=== PATIENT | male | born 1940 | race Caucasian/White ===

== ENCOUNTER 2020-01-02 00:12 | Day surgery (SDC) | payer MEDICARE, SELFPAY ==
[2019-12-27 15:02] VITALS: BMI 30.7
[2020-01-02 09:56] VITALS: BP 150/81; PULSE 67; RESP 18; TEMP 36.3; O2SAT 99
[2020-01-02] MEDS: LACTATED RINGERS 1,000 ML 150 ML IV CONT (09:59)
--- NOTE | 2020-01-02 10:09 | WPDANESEPPF ---
Anes - Initial Pre Proc Eval Procedure: Operation Date: 01/02/20 10:30 Proposed Procedures p Screening Colonoscopy - Homero Burrows DO Date/Time: 01/02/20 10:09 Surgeon: Homero Burrows DO Pre Op Diagnosis: hx of colon polyp Patient Data Age: 79 Gender: M Height: 1.8 m Weight: 99.3 kg Last Vital Signs Temp 36.3 C L 01/02/20 09:56 Pulse 67 01/02/20 09:56 Resp 18 01/02/20 09:56 BP 150/81 H 01/02/20 09:56 Pulse Ox 99 01/02/20 09:56 Allergies Allergy/AdvReac Type Severity Reaction Status Date / Time No Known Allergies Allergy Verified 01/02/20 09:53 Home Medications Medication Instructions Recorded Confirmed Type ascorbic acid (vitamin C) 1,000 mg 1 gm PO DAILY 12/25/19 01/02/20 History tablet aspirin 81 mg tablet,delayed 81 mg PO DAILY 12/25/19 01/02/20 History release atorvastatin 40 mg tablet 40 mg PO DAILY 12/25/19 01/02/20 History calcium polycarbophil 625 mg tablet 2,500 mg PO DAILY tablet 12/25/19 01/02/20 History coQ10 (ubiquinol) 100 mg capsule 100 mg PO BID 12/25/19 01/02/20 History digestive enzymes 1 cap PO DAILY 12/25/19 01/02/20 History garlic 500 mg capsule 500 mg PO DAILY 12/25/19 01/02/20 History halobetasol propionate 0.05 % 1 applic TOPICAL BID 12/25/19 01/02/20 History topical cream lactobacillus combination no.8 3 3,000 mmu cells PO DAILY 12/25/19 01/02/20 History billion cell capsule midazolam 3 mg-ketamine 25 tablet SUBLINGUAL 12/25/19 History mg-ondansetron 2 mg sublingual ashia prasterone (dhea) 25 mg capsule 25 mg PO DAILY 12/25/19 01/02/20 History triamcinolone acetonide 0.025 % 1 applic TOPICAL BID 12/25/19 01/02/20 History topical cream latanoprost [Xalatan] 0.005 % RIGHTEYE BID 12/27/19 01/02/20 History metoprolol tartrate [Lopressor] 50 mg PO BID 12/27/19 01/02/20 History Patient hx anesthesia problems: none Family hx anesthesia problems: none [facility] Past Medical History Medical History (Updated 01/02/20 @ 10:09 by Oren Mcneal DO) CAD (coronary artery disease) Hypertension Pure hypercholesterolemia Surgical History Surgical History (Updated 01/01/20 @ 14:22 by Oren Mcneal DO) History of cholecystectomy S/P CABG x 4 Social History Social History Smoking status: Never smoker Second hand tobacco smoke exposure: No Alcohol intake: never Substance use: never Gender identity (if verbalized by the patient): Male Anes - Eval Final PreProcedure Day of Procedure 01/02/20 10:09 Patient weight: obese Heart: regular rate and rhythm Lungs: clear to auscultation and normal air movement Airway: Mallampati scale class II Neurological: alert and oriented Last oral intake: >/= 8 hours ASA classification: III Emergent: no Anesthetic plan: proceed Anesthesia type and monitoring: general GIVS and standard monitoring Informed Consent: The patient's anesthetic plan and its attendant risks and benefits were discussed with the patient/family/POA. Questions were solicited and answers provided to the satisfaction of the patient/family/POA.
--- NOTE | 2020-01-02 10:27 | PM.IMHP ---
H&P: HPI History of Present Illness Chief complaint: hx of colon polyp Narrative: Reason for visit is colonoscopy. This very pleasant gentleman seen at the request of the primary physician with the patient's permission. Impression: Screening and surveillance colonoscopy. Patient's history adenomatous colon polyps. Chronic idiopathic constipation. GERD controlled with dietary manipulation. Coronary disease. Status post angioplasty with stent placement and subsequent coronary bypass grafting x4 vessels. Hypertension. Hyperlipidemia. Glaucoma. Recommendation: Colonoscopy. History: This very pleasant gentleman is being evaluated for colon cancer and polyp screening and surveillance. He has a history adenomatous colon polyps. He has a history of chronic constipation and previous colonoscopy also showed melanosis coli. The patient does complain of occasional heartburn. He watches his diet and this seems to control his heartburn. the patient reports occasional hard stool otherwise the GI review systems unremarkable. Physical examination revealed a very pleasant gentleman in no acute distress. General: very pleasant patient in no acute distress. HEENT: Head was normocephalic sclerae is clear mouth without masses neck was supple. Heart: Rate rhythm regular without S3 or S4. Lungs: CTA. Abdomen: Soft with no guarding or rigidity. Bowel sounds were active. Neurologic: Cranial nerves 2 through 12 intact. No focal defects. No clonus. Musculoskeletal system: Revealed no joint tenderness or swelling no muscle atrophy. Extremities: Reveal no significant edema. Skin: Warm and dry with normal turgor. Mental status: intact. Patient is alert and oriented. Want to thank inflammatory to spit the care of this patient. Review of Systems Review of Systems: All systems reviewed & are unremarkable except as noted in HPI and below PMFSH Past Medical History Medical History (Updated 01/02/20 @ 10:32 by Homero Burrows DO) Adenomatous colon polyp CAD (coronary artery disease) Glaucoma Hernia Hypertension Pure hypercholesterolemia Surgical History Surgical History (Updated 01/02/20 @ 10:32 by Homero Burrows DO) H/O cardiac catheterization H/O knee surgery History of cholecystectomy History of coronary angioplasty with insertion of stent S/P CABG x 4 Social History Social History Smoking status: Never smoker Second hand tobacco smoke exposure: No Alcohol intake: never Substance use: never Gender identity (if verbalized by the patient): Male Meds Home Medications and Allergies Home Medications Medication Instructions Recorded Confirmed Type ascorbic acid (vitamin C) 1,000 mg 1 gm PO DAILY 12/25/19 01/02/20 History tablet aspirin 81 mg tablet,delayed 81 mg PO DAILY 12/25/19 01/02/20 History release atorvastatin 40 mg tablet 40 mg PO DAILY 12/25/19 01/02/20 History calcium polycarbophil 625 mg tablet 2,500 mg PO DAILY tablet 12/25/19 01/02/20 History coQ10 (ubiquinol) 100 mg capsule 100 mg PO BID 12/25/19 01/02/20 History digestive enzymes 1 cap PO DAILY 12/25/19 01/02/20 History garlic 500 mg capsule 500 mg PO DAILY 12/25/19 01/02/20 History halobetasol propionate 0.05 % 1 applic TOPICAL BID 12/25/19 01/02/20 History topical cream lactobacillus combination no.8 3 3,000 mmu cells PO DAILY 12/25/19 01/02/20 History billion cell capsule midazolam 3 mg-ketamine 25 tablet SUBLINGUAL 12/25/19 History mg-ondansetron 2 mg sublingual ashia prasterone (dhea) 25 mg capsule 25 mg PO DAILY 12/25/19 01/02/20 History triamcinolone acetonide 0.025 % 1 applic TOPICAL BID 12/25/19 01/02/20 History topical cream latanoprost [Xalatan] 0.005 % RIGHTEYE BID 12/27/19 01/02/20 History metoprolol tartrate [Lopressor] 50 mg PO BID 12/27/19 01/02/20 History Allergies Allergy/AdvReac Type Severity Reaction St
[2020-01-02 11:26] VITALS: BP 81/50; PULSE 64; RESP 14; O2SAT 97
[2020-01-02 11:36] VITALS: BP 109/67; PULSE 66; RESP 17; O2SAT 94
[2020-01-02 11:46] VITALS: BP 128/70; PULSE 65; RESP 18; O2SAT 95
== END 2020-01-02 11:58 | disposition home or self-care (01) ==
PROVIDERS: PCP Internal Medicine; Visit Provider Internal Medicine Gastroenterology
PROC: 0DJD8ZZ Inspection of Lower Intestinal Tract, Via Natural or Artificial Opening Endoscopic (ICD-10-PCS; CPT 45378; principal; 2020-01-02 10:30)
DX: Z12.11 Encounter for screening for malignant neoplasm of colon (principal); K52.9 Noninfective gastroenteritis and colitis, unspecified; K63.5 Polyp of colon; D12.8 Benign neoplasm of rectum; K64.8 Other hemorrhoids; K63.89 Other specified diseases of intestine; K57.30 Diverticulosis of large intestine without perforation or abscess without bleeding; I10 Essential (primary) hypertension; I25.10 Atherosclerotic heart disease of native coronary artery without angina pectoris; E78.00 Pure hypercholesterolemia, unspecified; Z95.1 Presence of aortocoronary bypass graft; Z79.82 Long term (current) use of aspirin; E66.9 Obesity, unspecified; Z68.30 Body mass index [BMI] 30.0-30.9, adult
CPT/HCPCS: 45380; 88305; J2704; J7120

== ENCOUNTER 2025-09-25 00:02 | Day surgery (SDC) | payer MEDICARE, SELFPAY ==
--- OUTSIDE RECORDS SUMMARY | 2017-07-03 07:50 | XMS_ITS | Continuity of Care Document ---
Author Organization [facility] Address [address] [place] [address] [address] [place] [address] Phone Care Team Providers Care Lab Support Technician Name Role Phone Annika PELAYO, William Unavailable Unavaila ble Procedures Procedure Date CATARACT SURG W/IOL, 1 STAGE OFFICE/OUTPATIENT VISIT, [facility] OPHTHALMIC BIOMETRY LT GDX Optic Nerve Advance Directives Directive Yes / No Effective Date File Name No Information Encounters Encounter Description Practice Location Reason(s) For Visit Diagnoses Date Provider Providers Copied on Encounter [facility], [id number] [place] [address] [address], [place], [place], [id number], [place] tel:[phone] No Information 7 Annika Thomas. [address], [address], [place], [place], [address], [place]. tel:[phone] Referring Provider: William ford, [address], [place], [address] . tel:[phone] OFFICE/OUTPA TIENT VISIT, [facility], [id number] [place] [address] [address], [place], [place], [id number], [place] tel:[phone] [facility] No Information 7 Annika Thomas. [address], [address], [place], [place], [id number], [place]. tel:[phone] Referring Provider: William ford, [address], [place], [address] . tel:[phone] Family History Family Member Type Diagnosis Age At Onset No Information Payers Payer name Insurance type Covered green party ID Yvette powell(s) IBEW LOCAL 1 SECONDARY CLAIMS CI [id number] Social History Type Description Quantity Date Captured Comments Sex Female Smoking Status No Information Chief Complaint And Reason For Visit No Information Reason For Referral Reason For Referral No Information History Of Present Illness Encounter Date Complaint History Of Prese nt Illness No Information Functional Status Date Functional Assessmen t No Information Instructions Date Instruction Additional Infor mation No Information Assessments Type Assessment Date No Information Patient Care Teams Name Effective Dates (start - stop) Status Members No Information
[2025-09-05 08:26] VITALS: BMI 30.2
--- OUTSIDE RECORDS SUMMARY | 2025-09-25 00:07 | XMS_ITS | Encounter Summary ---
Author Organization [facility] Address [address] [place] [address] Care Team Providers Care County Engineer Name Role Phone Sundeep Rivera DO Primary Care Provider [phone] Encounter Details Date Type Department Care Team (Late st Contact Info) Description 11/07/2018 Lab Requisition [facility] Care DermPath Lab [address] [place] [address] Matthias Ruiz MD [address] [place] [address] Social History Tobacco Use Types Packs/Day Years Used Date Smoking Tobacco: Never Assessed Sex and Gender Information Value Date Recorded Sex Assigned at Not on file Legal Sex Male 5:21 AM GLASS WASHER Gender Identity Not on file Sexual Orientation Not on file documented as of this encounter Plan of Treatment Not on file documented as of this encounter Procedures Procedure Name Priority Date/Time Associated Diagnosis Comments DERMATOPATHOLOGY Routine 11/06/2018 12:0 0 AM GLASS WASHER documented in this encounter Results * DERMATOPATHOLOGY (11/06/2018 12:00 AM GLASS WASHER) Case Report Dermatopathology Report Case: [id number] Authorizing Provider: Matthias Ruiz MD Collected: 11/06/2018 12:00 AM Pathologist: Uriel Vera MD Received: 11/07/2018 11:34 AM Specimens: A) - Skin, right frontal scalp B) - Skin, anterior to right sideburn 9 2:48 PM [facility] DERMATOPATHOLOGY LABORATORY Final Diagnosis Specimen A. SKIN, right frontal scalp: COMPOUND MELANOCYTIC PROLIFERATION; NOT PRESENT AT SAMPLED MARGIN (D48.5) (see microscopic description and comment) Specimen B. SKIN, anterior to right sideburn: BASAL CELL CARCINOMA, NODULAR TYPE (C44.319) 2:48 PM [facility] DERMATOPATHOLOGY LABORATORY at [address] Clinical History A: R/O ISK vs nevus. B: R/O SCC, BCC, HAK. 2:48 PM [facility] DERMATOPATHOLOGY LABORATORY Gross Description Specimen A: Received is one formalin filled container labeled with the patient's name and designated right frontal scalp. The specimen consists of a shave biopsy measuring [id number]. Jar 0. Specimen B: Received is one formalin filled container labeled with the patient's name and designated anterior to right sideburn. The specimen consists of a shave biopsy measuring [id number]. Jar 0. 2:48 PM [facility] DERMATOPATHOLOGY LABORATORY Microscopic Description Specimen A. SKIN, right frontal scalp: Sections show a compound melanocytic proliferation. There is a lentiginous proliferation of melanocytes between irregular nests. Scattered melanocytes show evidence of upward migration within the epidermis. The dermis shows focal small nests of cytologically similar melanocytes. The melanocytes are highlighted by a MART-1/Melan-A immunohistochemical stain. This lesion is not present at the sampled margin of the specimen. COMMENT: Overall a compound melanocytic nevus, lentiginous type that is irritated is favored. However, these lesions are uncommon on the head and neck and the lentiginous component is worrisome. As this lesion appears completely excised in the sampled sections, clinicopathologic correlation is recommended as to complete removal. Specimen B. SKIN, anterior to right sideburn: Within the dermis there are aggregates of basaloid cells with a high nuclear to cytoplasmic ratio and peripheral palisading. 2:48 PM [facility] DERMATOPATHOLOGY LABORATORY Disclaimer An external and internal positive and negative controls are appropriate for the histochemical, immunohistochemical and immunofluorescence stain(s) in this case (if any), except where stated explicitly. The performance characteristics of the stain(s) cited in this report were developed and its performance characteristic determined by the Dermatopathology Laboratory at [facility], directed by Dr. Madiha Vera. These tests need not be, and therefore are not, approved by the [place] Food and Drug Administration. The tests are used for clinical purposes. Billing Codes Specimen Charges Stain Charges 90584 69503 1 1 79010 1 9 2:48 PM [facility] DERMATOPATHOLOGY LABORATORY Embedded Images 9 2:48 PM [facility] DERMATOPATHOLOGY LABORATORY Pathology/Cytology TISSUE SPECIMEN FROM SKIN / Unknown 11/06/2018 11/07/2018 11:34 AM GLASS WASHER Miscellaneous samples (specimen) TISSUE SPECIMEN FROM SKIN / Unknown 11/06/2018 11/07/2018 11:34 AM GLASS WASHER Matthias Ruiz MD LAB - PATHOLOGY/CYTOLOGY ORD ERABLES Final Result DERMATOPATHOLOGY LABORATORY [facility] - Department of Dermatology [address] [place] [address], 5th Floor Lab [address] [phone] documented in this encounter Visit Diagnoses Not on filedocumented in this encounter Care Teams County Engineer Relationship Specialty Start Date End Date Sundeep Rivera DO [address] [place] [address] PCP - General 04/12/18 documented as of this encounter
--- OUTSIDE RECORDS SUMMARY | 2025-09-25 00:07 | XMS_ITS | Encounter Summary ---
Author Organization [facility] Address [address] [place] [address] Care Team Providers Care Quarrying Manager Name Role Phone Sundeep Rivera DO Primary Care Provider [phone] Encounter Details Date Type Department Care Team (Late st Contact Info) Description 11/26/2018 Lab Requisition [facility] Care DermPath Lab [address] [place] [address] Matthias Ruiz MD [address] [place] [address] Social History Tobacco Use Types Packs/Day Years Used Date Smoking Tobacco: Never Assessed Sex and Gender Information Value Date Recorded Sex Assigned at Not on file Legal Sex Male 5:21 AM COSMETIC MAKER Gender Identity Not on file Sexual Orientation Not on file documented as of this encounter Plan of Treatment Not on file documented as of this encounter Procedures Procedure Name Priority Date/Time Associated Diagnosis Comments DERMATOPATHOLOGY Routine 11/23/2018 12:0 0 AM COSMETIC MAKER documented in this encounter Results * DERMATOPATHOLOGY (11/23/2018 12:00 AM COSMETIC MAKER) Case Report Dermatopathology Report Case: [id number] Authorizing Provider: Matthias Ruiz MD Collected: 11/23/2018 12:00 AM Pathologist: Berta Olson MD Received: 11/26/2018 11:08 AM Specimen: Skin, left upper back 9 9:28 AM COSMETIC MAKER DERMATOPATHOLOGY LABORATORY Final Diagnosis Specimen A. 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 9:28 AM [facility]MATOP[facility] Gross Description Specimen A: Received is one formalin filled container labeled with the patient's name and designated left upper back. The specimen consists of a shave biopsy measuring [id number]. Jar 0. 9:28 AM [facility]ERMATOP[facility] Microscopic Description Specimen A. SKIN, left upper back: There is focal parakeratosis and spongiosis. The dermis shows a superficial to mid dermal, perivascular and interstitial infiltrate of lymphocytes and eosinophils. Many of the eosinophils are present in the papillary dermis and occasional eosinophils are noted within the epidermis. Grocott's methenamine silver (GMS) stain fails to highlight fungal elements in the available sections. COMMENT: The histological differential diagnosis includes contact dermatitis, the urticarial phase of bullous pemphigoid, and a hypersensitivity reaction. If there is clinical concern for a diagnosis of bullous pemphigoid consideration should be given to submitting tissue for direct immunofluorescence. 9:28 AM [facility] Disclaimer An external and internal positive and negative controls are appropriate for the histochemical, immunohistochemical and immunofluorescence stain(s) in this case (if any), except where stated explicitly. The performance characteristics of the stain(s) cited in this report were developed and its performance characteristic determined by the Dermatopathology Laboratory at [facility], directed by Dr. Madiha Vera. These tests need not be, and therefore are not, approved by the [place] Food and Drug Administration. The tests are used for clinical purposes. Billing Codes Specimen Charges Stain Charges 79480 1 19198 1 9:28 AM [facility] Embedded Images 9:28 AM [facility] Pathology/Cytolog y TISSUE SPECIMEN FROM SKIN / Unknown 11/23/2018 11/26/2018 11:08 AM [facility] Matthias Ruiz MD LAB - PATHOLOGY/CYTOLOGY ORD ERABLES Final Result DERMATOPATHOLOGY LABORATORY [facility] - Department of Dermatology [facility] [facility], [address]th [place] [address], [facility] [phone] documented in this encounter Visit Diagnoses Not on filedocumented in this encounter Care Teams Quarrying Manager Relationship Specialty Start Date End Date Sundeep Rivera DO [address] [place] [address] PCP - General 04/12/18 documented as of this encounter
--- OUTSIDE RECORDS SUMMARY | 2025-09-25 00:07 | XMS_ITS | Clinical Summary ---
Author Organization [facility] Address [address], [facility] [address] [place] [address] Phone Care Team Providers Care Operations Specialists Name Role Phone Sundeep Rivera DO Primary Care Provider Homero Burrows DO Unavailable [phone] Allergies No known active allergies Medications polyethylene glycol (MIRALAX) Powder Use entire bottle of 255 grams of miralax for Colon prep as directed by office. 255 g 8 Active Additional Information Patient not taking.Reported on 06/09/2020 ASPIRIN LOW DOSE 81 MG Tablet Delayed Response Take 81 mg by mouth daily. 1 8 Active atorvastatin (LIPITOR) 40 MG Tablet 11 8 Active LUMIGAN 0.01 % Solution INT 1 GTT IN OU HS 4 8 Active bimatoprost (LUMIGAN) 0.03 % Solution 1 drop nightly. Acti ve Probiotic Product ([employer] PROBIOTIC) Capsule 6 Active metoprolol tartrate (LOPRESSOR) 50 MG Tablet 2 8 Active olopatadine (PATANOL) 0.1 % Solution INT 1 GTT IN OU BID 5 8 Active pantoprazole (PROTONIX) 40 MG Tablet Delayed Response TK 1 T PO BID 0 8 Active Prasterone 6.5 MG INSERT 25 mg. 6 Active triamcinolone (KENALOG) 0.1 % Cream 0 8 Active olopatadine (PATADAY) 0.2 % Solution 1 drop daily. Active Coenzyme Q10 100 MG Capsule Take by mouth. Acti ve dextrose 5 % SOLN 150 mL with ascorbic acid 500 MG/ML SOLN Take by mouth. Acti ve halobetasol (ULTRAVATE) 0.05 % Cream Apply 2 times daily. Application Site: (Description and Location) Active Hydrocortisone Rudi-Pramoxine (PROCTOCREAM-HC RE) by Rectal route as needed. Active latanoprost (XALATAN) 0.005 % Solution INT 1 GTT IN OU HS UTD 0 Active Ascorbic Acid (VITAMIN C PO) Take by mouth. Active Specialty Vitamins Products (PROSTATE PO) Take by mouth. Prostate health Active Calcium Polycarbophil (FIBERCON PO) Take by mouth. A ctive Hydrocortisone, Perianal, (Anusol-HC) 2.5 % Cream Apply daily. Apply to rectum as directed. 1 Tube 1 Active Active Problems No known active problems Family History Medical History Relation Name Comments Melanoma Brother Heart Attack Father Cancer Mother Relation Name Status Comments Brother Father (Age 82) HEART PROB LEMS Mother (Age 62) CANCER Social History Tobacco Use Types Packs/Day Years Used Date Smoking Tobacco: Never Smokeless Tobacco: Never Tobacco Cessation:Counseling Given: No Alcohol Use Standard Drinks/Week Comments Yes 1 (1 standard drink = 0.6 oz pur e alcohol) Not very often Sexually Active Control Partners Comments Not Currently Sex and Gender Information Value Date Recorded Sex Assigned at Not on file Legal Sex Male 8:08 AM SNATH HANDLE ASSEMBLER Gender Identity Not on file Sexual Orientation Not on file Last Filed Vital Signs Vital Sign Reading Time Taken Comments Blood Pressure 128/68 06/09/2020 11:14 AM CDT Pulse 57 06/09/2020 11:14 AM CDT Temperature 36.1 C (97 F) 06/09/2020 11:14 AM CDT Respiratory Rate 18 06/09/2020 11:14 AM CDT Oxygen Saturation 98% 06/09/2020 11:14 AM CDT Inhaled Oxygen Concentration - - Weight 102.1 kg (225 lb) 06/09/2020 11:14 AM CDT Height 180.3 cm (5' 11) 06/09/2020 11:14 AM CDT Body Mass Index 31.38 06/09/2020 11:14 AM CDT Plan of Treatment Health Maintenance Due Date Last Done Comments Hepatitis C Virus (HCV) Screening 1940 TdaP Immunization 1942 Cologuard 1987 Immunochemical Fecal Occult Blood 1987 Pneumococcal Immunization (5 0+ years) (1 of 1 - PCV) 1992 Zoster Immunization (1 of 2) 1992 Medicare Initial AWV [id number] 11/23/2008 Respiratory Syncytial Virus (RSV) Immunization (Adult) (1 - 1-dose 75+ series) 2017 Colonoscopy 01/01/2023 01/02/2020, 07/30/2018, 04/09/2018 Colorectal Cancer Screening 01/01/2023 Influenza Immunization (#1) 2025 SARS-COV-2 Immunization ( season) 2025 Hepatitis B Immunization Aged Out No longer eligible based on patient's age to complete this topic Human Papillomavirus (HPV) Immunization Aged Out No longer eligible b ased on patient's age to complete this topic Meningococcal Immunization (ACWY) Aged Out No longer eligible b ased on patient's age to complete this topic Rotavirus Immunization Aged Out No lo nger eligible based on patient's age to complete this topic Procedures Procedure Name Priority Date/Time Associated Diagnosis Comments COLONOSCOPY Routine 01/02/2020 from Last 3 Months or Most Recently Relevant to Health Maintenance Results * COLONOSCOPY (01/02/2020) Homero Burrows DO PROCEDURE/MINOR SURGICAL ORDERA BLES Final Result from Last 3 Months or Most Recently Relevant to Health Maintenance Insurance MEDICARE [employer] Care Teams Operations Specialists Relationship Specialty Start Date End Date Sundeep Rivera DO [address] [place], [place] [id number] PCP - General Internal Medicine 11/15/17 Homero Burrows DO [address] [place] [address] Gastroenterology 04/10/18
--- OUTSIDE RECORDS SUMMARY | 2025-09-25 00:08 | XMS_ITS | Encounter Summary ---
Author Organization [facility] Address [address] [facility] [place] [address] Care Team Providers Care Dimension Specification Inspector Name Role Phone Sundeep Rivera DO Primary Care Provider [phone] Encounter Details Date Type Department Care Team (Late st Contact Info) Description 09/07/2022 Lab Requisition [facility] Care DermPath Lab [address] [place] [phone] [place] [address] Social History Tobacco Use Types Packs/Day Years Used Date Smoking Tobacco: Never Smokeless Tobacco: Never Alcohol Use Standard Drinks/Week Comments No 0 (1 standard drink = 0.6 oz pur e alcohol) Sex and Gender Information Value Date Recorded Sex Assigned at Not on file Legal Sex Male 5:21 AM DIRECTOR VALIDATION Gender Identity Not on file Sexual Orientation Not on file documented as of this encounter Plan of Treatment Not on file documented as of this encounter Procedures Procedure Name Priority Date/Time Associated Diagnosis Comments DERMATOPATHOLOGY Routine 09/06/2022 12:0 0 AM DIRECTOR VALIDATION documented in this encounter Results * DERMATOPATHOLOGY (09/06/2022 12:00 AM DIRECTOR VALIDATION) Case Report Dermatopathology Report Case: [id number] Authorizing Provider: Matthias Ruiz MD Collected: 09/06/2022 12:00 AM Ordering Location: [facility] Care DermPath Lab Received: 09/07/2022 12:56 PM Pathologist: Bessy Philip MD Specimen: Skin, right ext forearm 4:20 PM [facility] DERMATOPATHOLOGY LABORATORY Final Diagnosis Specimen A. SKIN, right ext forearm: SEBORRHEIC KERATOSIS, MACULAR, INFLAMED; CONSISTENT WITH (L82.1) APPROXIMATES MARGIN (see microscopic description and comment) 4:20 PM [facility] DERMATOPATHOLOGY LABORATORY at 1620 DIRECTOR VALIDATION Clinical History R/O BCC vs. Other. Please Check Margins. 4:20 PM [facility] DERMATOPATHOLOGY LABORATORY Gross Description Specimen A: Received is one formalin filled container labeled with the patient's name and designated right ext forearm. The specimen consists of a shave biopsy measuring [id number] and it is inked. Jar 0. 4:20 PM [facility] DERMATOPATHOLOGY LABORATORY Microscopic Description Specimen A. SKIN, right ext forearm: Sections show a relatively broad, flat proliferation of small keratinocytes. The surface is gently papillated, and there is increased basilar pigmentation. There is a lymphohistiocytic infiltrate within the dermis. This lesion approximates the margin of the specimen. Additional deeper sections were obtained and reviewed. COMMENT: The overall histologic features are somewhat favored to represent a macular seborrheic keratosis. Healing skin changes were also considered. 4:20 PM [facility] DERMATOPATHOLOGY LABORATORY Disclaimer An external and internal positive and negative controls are appropriate for the histochemical, immunohistochemical and immunofluorescence stain(s) in this case (if any), except where stated explicitly. The performance characteristics of the stain(s) cited in this report were developed and its performance characteristic determined by the Dermatopathology Laboratory at [facility], directed by Dr. Madiha Vera. These tests need not be, and therefore are not, approved by the [place] Food and Drug Administration. The tests are used for clinical purposes. Billing Codes Specimen Charges Stain Charges 03197 1 4:20 PM [facility] DERMATOPATHOLOGY LABORATORY Embedded Images 4:20 PM [facility] DERMATOPATHOLOGY LABORATORY Pathology/Cytolog y TISSUE SPECIMEN FROM SKIN / Unknown 09/06/2022 09/07/2022 12:56 PM [facility] Matthias Ruiz MD LAB - PATHOLOGY/CYTOLOGY ORD ERABLES Final Result DERMATOPATHOLOGY LABORATORY [facility] - Department of Dermatology [facility] Specialized Medicine [address] [place] [address], [address] [phone] documented in this encounter Visit Diagnoses Not on filedocumented in this encounter Care Teams Dimension Specification Inspector Relationship Specialty Start Date End Date Sundeep Rivera DO [address] [facility] [address] [facility] [[email or web address] [address] [place] [address] PCP - General 04/12/18 documented as of this encounter
--- OUTSIDE RECORDS SUMMARY | 2025-09-25 00:08 | XMS_ITS | Clinical Summary ---
Author Organization [facility] Address [address] [place] [address] Care Team Providers Care Cement Finisher Helper Name Role Phone Sundeep Rivera DO Primary Care Provider [phone] Source Comments [facility],non-owned Affiliates and Associated Physician Practices is amultiple site organization consisting of ambulatory clinics and hospital sitesin [place], [place], [place] and [place]. This disclosure is being madepursuant to the Care Everywhere program and may not contain all information available regarding this patient. Last updated 18.[facility] Allergies No known active allergies Medications * Be aware that medications may not be up to date on this document. Alwaysverify current medications with the patient. metoprolol tartrate (LOPRESSOR) 50 MG tablet 8 Active atorvastatin (LIPITOR) 40 MG tablet 9 Active bimatoprost (LUMIGAN) 0.03 % ophthalmic solution 1 drop nightly. Acti ve triamcinolone acetonide (KENALOG) 0.1 % cream 8 Active ASPIRIN LOW DOSE 81 MG 9 Active halobetasol (ULTRAVATE) 0.05 % cream Active Probiotic Product ([employer] PROBIOTIC) CAPS 6 Active Ascorbic Acid (VITAMIN C PO) Activ e hydrocortisone, rectal, (PROCTOCARE-HC) 2.5 % cream Insert into the rectum as needed for Hemorrhoids Active Active Problems No known active problems Social History Tobacco Use Types Packs/Day Years Used Date Smoking Tobacco: Never Smokeless Tobacco: Never Alcohol Use Standard Drinks/Week Comments No 0 (1 standard drink = 0.6 oz pur e alcohol) Sex and Gender Information Value Date Recorded Sex Assigned at Not on file 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 Gender Identity Not on file Sexual Orientation Not on file Last Filed Vital Signs Vital Sign Reading Time Taken Comments Blood Pressure 185/89 04/29/2020 12:50 PM CDT Pulse 45 04/29/2020 12:50 PM CDT Temperature - - Respiratory Rate 18 04/14/2015 7:24 AM CDT Oxygen Saturation 97% 01/04/2019 1:01 PM CDT Inhaled Oxygen Concentration - - Weight 99.8 kg (220 lb) 04/29/2020 8:15 AM CDT Height 180.3 cm (5' 11) 04/29/2020 8:15 AM CDT Body Mass Index 30.68 04/29/2020 8:15 AM CDT Plan of Treatment Health Maintenance Due Date Last Done Comments MEDICARE AWV 12 MONTHS 1942 DTAP/TDAP/TD VACCINES (1 - Tdap) 1961 PNEUMOCOCCAL VACCINE 50+ (1 of 1 - PCV) 1992 ZOSTER VACCINE (1 of 2) 1992 Respiratory Syncytial Virus (RSV) Vaccine Pt: or over 60 yrs (1 - 1-dose 75+ series) 2017 DEPRESSION SCREENING 10/23/2024 COVID-19 VACCINE ( - 2024-2 6 season) 2025 INFLUENZA VACCINE (#1) 2025 HEPATITIS B VACCINE Aged Out No longe r eligible based on patient's age to complete this topic HIB VACCINE Aged Out No longer eligi ble based on patient's age to complete this topic HPV VACCINE Aged Out No longer eligi ble based on patient's age to complete this topic MENINGOCOCCAL (Group B) VACC INE SHARED DECISION-MAKING Aged Out No longer eligibl e based on patient's age to complete this topic MENINGOCOCCAL GROUPS A/C/Y/W VACCINE Aged Out No longer eligible b ased on patient's age to complete this topic Insurance MEDICARE MEDICARE MEDICARE SUPPLEMENT PAYOR GENERIC Care Teams Cement Finisher Helper Relationship Specialty Start Date End Date Sundeep Rivera DO [address] [facility] [address] [place] [address] PCP - General 04/12/18
--- OUTSIDE RECORDS SUMMARY | 2025-09-25 00:08 | XMS_ITS | Encounter Summary ---
Author Organization [facility] Address [address] [facility] [place] [address] Care Team Providers Care Engine Monitor Name Role Phone Sundeep Rivera DO Primary Care Provider [phone] Encounter Details Date Type Department Care Team (Late st Contact Info) Description 03/18/2020 Lab Requisition 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 Gender Identity Not on file Sexual Orientation Not on file documented as of this encounter Plan of Treatment Not on file documented as of this encounter Procedures Procedure Name Priority Date/Time Associated Diagnosis Comments DERMATOPATHOLOGY Routine 03/17/2020 12:0 0 AM CDT documented in this encounter Results * DERMATOPATHOLOGY (03/17/2020 12:00 AM CDT) Case Report Dermatopathology Report Case: [id number] Authorizing Provider: Matthias Ruiz MD Collected: 03/17/2020 12:00 AM Ordering Location: [facility] DermPath Lab Received: 03/18/2020 11:58 AM Pathologist: Uriel Vera MD Specimen: Skin, left sup forehead 0 5:48 PM CDT DERMATOPATHOLOGY LABORATORY Final Diagnosis Specimen A. 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 0 5:48 PM CDT DERMATOPATHOLOGY LABORATORY Gross Description Specimen A: Received is one formalin filled container labeled with the patient's name and designated left sup forehead. The specimen consists of a shave biopsy measuring [id number]. Jar 0. 0 5:48 PM CDT DERMATOPATHOLOGY LABORATORY Microscopic Description Specimen A. SKIN, left sup forehead: The epidermis is acanthotic and shows full thickness disorderly maturation of keratinocytes, mitoses at different levels, and dyskeratotic cells. There is overlying parakeratosis and hyperkeratosis. 0 5:48 PM CDT DERMATOPATHOLOGY LABORATORY Disclaimer An external and internal positive and negative controls are appropriate for the histochemical, immunohistochemical and immunofluorescence stain(s) in this case (if any), except where stated explicitly. The performance characteristics of the stain(s) cited in this report were developed and its performance characteristic determined by the Dermatopathology Laboratory at [facility], directed by Dr. Madiha Vera. These tests need not be, and therefore are not, approved by the [place] Food and Drug Administration. The tests are used for clinical purposes. Billing Codes Specimen Charges Stain Charges 11206 1 0 5:48 PM CDT DERMATOPATHOLOGY LABORATORY Embedded Images 0 5:48 PM CDT DERMATOPATHOLOGY LABORATORY Pathology/Cytolog y TISSUE SPECIMEN FROM SKIN / Unknown 03/17/2020 03/18/2020 11:58 AM CDT us Matthias Ruiz MD LAB - PATHOLOGY/CYTOLOGY ORD ERABLES Final Result DERMATOPATHOLOGY LABORATORY [facility] - Department of Dermatology Corrugator Operator [place]/[address] [address] [phone] documented in this encounter Visit Diagnoses Not on filedocumented in this encounter Care Teams Engine Monitor Relationship Specialty Start Date End Date Sundeep Rivera DO [address] [facility] [address] [place] [address] PCP - General 04/12/18 documented as of this encounter
--- OUTSIDE RECORDS SUMMARY | 2025-09-25 00:08 | XMS_ITS | Encounter Summary ---
Author Organization [facility] Address [address] [place] [address] Care Team Providers Care Hand Filer Balance Wheel Name Role Phone Sundeep Rivera DO Primary Care Provider [phone] Encounter Details Date Type Department Care Team (Late st Contact Info) Description 04/22/2024 Lab Requisition [facility] - DermPath Lab [address] [place] [phone] Matthias Ruiz MD [address] [place] [address] Social History Tobacco Use Types Packs/Day Years Used Date Smoking Tobacco: Never Smokeless Tobacco: Never Alcohol Use Standard Drinks/Week Comments No 0 (1 standard drink = 0.6 oz pur e alcohol) Sex and Gender Information Value Date Recorded Sex Assigned at Not on file 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 Gender Identity Not on file Sexual Orientation Not on file documented as of this encounter Plan of Treatment Not on file documented as of this encounter Procedures Procedure Name Priority Date/Time Associated Diagnosis Comments DERMATOPATHOLOGY Routine 04/17/2024 12:0 0 AM CDT documented in this encounter Results * DERMATOPATHOLOGY (04/17/2024 12:00 AM CDT) Case Report Dermatopathology Report Case: [id number] Authorizing Provider: Matthias Ruiz MD Collected: 04/17/2024 12:00 AM Ordering Location: [facility] Physician [facility] - Received: 04/22/2024 11:00 AM DermPath Lab Pathologist: Bessy Philip MD Specimen: Skin, right supraclavicular fossa 1:19 PM T DERMATOPATHOLOGY LABORATORY Final Diagnosis Specimen A. 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 The specimen consists of a shave biopsy measuring 10u79w2 mm. Jar 0. 1:19 PM T DERMATOPATHOLOGY LABORATORY Microscopic Description Specimen A. SKIN, right supraclavicular fossa: There is a cup-shaped invagination filled with cornified material and surrounded by slight epidermal hyperplasia in association with acantholytic dyskeratosis. 1:19 PM CDT DERMATOPATHOLOGY LABORATORY Disclaimer An external and internal positive and negative controls are appropriate for the histochemical, immunohistochemical and immunofluorescence stain(s) in this case (if any), except where stated explicitly. The performance characteristics of the stain(s) cited in this report were developed and its performance characteristic determined by the Dermatopathology Laboratory at [facility], directed by Dr. Madiha Vera. These tests need not be, and therefore are not, approved by the [place] Food and Drug Administration. The tests are used for clinical purposes. Billing Codes Specimen Charges Stain Charges 86529 1 1:19 PM CDT DERMATOPATHOLOGY LABORATORY Embedded Images 1:19 PM CDT DERMATOPATHOLOGY LABORATORY Pathology/Cytolog y TISSUE SPECIMEN FROM SKIN / Unknown 04/17/2024 04/22/2024 11:00 AM CDT us Matthias Ruiz MD LAB - PATHOLOGY/CYTOLOGY ORD ERABLES Final Result DERMATOPATHOLOGY LABORATORY [facility] - Department of Dermatology [address], [address] Floor [place], [place] [address] [place] [address] documented in this encounter Visit Diagnoses Not on filedocumented in this encounter Care Teams Hand Filer Balance Wheel Relationship Specialty Start Date End Date Sundeep Rivera DO [address] [facility] [address] [place] [address] PCP - General 04/12/18 documented as of this encounter
--- OUTSIDE RECORDS SUMMARY | 2025-09-25 00:08 | XMS_ITS | Encounter Summary ---
Author Organization [facility] Address [address] [facility] [place] [address] Care Team Providers Care Aircraft Line Assembler Name Role Phone Sundeep Rivera DO Primary Care Provider [phone] Encounter Details Date Type Department Care Team (Late st Contact Info) Description 01/31/2024 Lab Requisition [facility] - DermPath Lab [address] [place] [phone] Matthias Ruiz MD [address] [place] [address] Social History Tobacco Use Types Packs/Day Years Used Date Smoking Tobacco: Never Smokeless Tobacco: Never Alcohol Use Standard Drinks/Week Comments No 0 (1 standard drink = 0.6 oz pur e alcohol) Sex and Gender Information Value Date Recorded Sex Assigned at Not on file 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 Gender Identity Not on file Sexual Orientation Not on file documented as of this encounter Plan of Treatment Not on file documented as of this encounter Procedures Procedure Name Priority Date/Time Associated Diagnosis Comments DERMATOPATHOLOGY Routine 01/30/2024 3:33 AM CDT documented in this encounter Results * DERMATOPATHOLOGY (01/30/2024 3:33 AM CDT) Case Report Dermatopathology Report Case: [id number] Authorizing Provider: Matthias Ruiz MD Collected: 01/30/2024 03:33 AM Ordering Location: [facility] Physician [facility] - Received: 02/01/2024 06:33 AM DermPath Lab Pathologist: Liliana Philip MD Specimen: Skin, right mormonism 1:19 PM T DERMATOPATHOLOGY LABORATORY Final Diagnosis Specimen A. SKIN, right mormonism: SEBORRHEIC KERATOSIS, INFLAMED (L82.0) 1:19 PM T DERMATOPATHOLOGY LABORATORY at 1319 CDT Clinical History R/O SCC 1:19 PM CDT DERMATOPATHOLOGY LABORATORY Gross Description Specimen A: Received is one formalin filled container labeled with the patient's name and designated right mormonism. The specimen consists of a shave biopsy measuring 9x8x1 mm. Jar 0. 1:19 PM T DERMATOPATHOLOGY LABORATORY Microscopic Description Specimen A. SKIN, right mormonism: There is hyperkeratosis, parakeratosis, papillomatosis, and acanthosis of the epidermis. There is a lymphohistiocytic infiltrate within the papillary dermis that is focally lichenoid. 1:19 PM CDT DERMATOPATHOLOGY LABORATORY Disclaimer An external and internal positive and negative controls are appropriate for the histochemical, immunohistochemical and immunofluorescence stain(s) in this case (if any), except where stated explicitly. The performance characteristics of the stain(s) cited in this report were developed and its performance characteristic determined by the Dermatopathology Laboratory at [facility], directed by Dr. Madiha Vera. These tests need not be, and therefore are not, approved by the [place] Food and Drug Administration. The tests are used for clinical purposes. Billing Codes Specimen Charges Stain Charges 81437 1 1:19 PM CDT DERMATOPATHOLOGY LABORATORY Embedded Images 1:19 PM CDT DERMATOPATHOLOGY LABORATORY Pathology/Cytolo gy TISSUE SPECIMEN FROM SKIN / Unknown 01/30/2024 3:33 AM CDT 02/01/2024 6:33 AM CDT us Matthias Ruiz MD LAB - PATHOLOGY/CYTOLOGY ORD ERABLES Final Result DERMATOPATHOLOGY LABORATORY [facility] - Department of Dermatology [address], [address] [phone] documented in this encounter Visit Diagnoses Not on filedocumented in this encounter Care Teams Aircraft Line Assembler Relationship Specialty Start Date End Date Sundeep Rivera DO [address] [facility] [address] [place] [address] PCP - General 04/12/18 documented as of this encounter
--- OUTSIDE RECORDS SUMMARY | 2025-09-25 00:08 | XMS_ITS | Encounter Summary ---
Author Organization [facility] Address [address] [place] [address] Care Team Providers Care Neurocritical Care Physician Name Role Phone Sundeep Rivera DO Primary Care Provider [phone] Encounter Details Date Type Department Care Team (Late st Contact Info) Description 07/24/2019 Lab Requisition [facility] DermPath Lab [address] [place] [phone] Matthias Ruiz MD [address] [place] [address] Social History Tobacco Use Types Packs/Day Years Used Date Smoking Tobacco: Never Smokeless Tobacco: Never Alcohol Use Standard Drinks/Week Comments No 0 (1 standard drink = 0.6 oz pur e alcohol) Sex and Gender Information Value Date Recorded Sex Assigned at Not on file 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 Gender Identity Not on file Sexual Orientation Not on file documented as of this encounter Plan of Treatment Not on file documented as of this encounter Procedures Procedure Name Priority Date/Time Associated Diagnosis Comments DERMATOPATHOLOGY Routine 07/23/2019 12:0 0 AM CDT documented in this encounter Results * DERMATOPATHOLOGY (07/23/2019 12:00 AM CDT) Case Report Dermatopathology Report Case: [id number] Authorizing Provider: Matthias Ruiz MD Collected: 07/23/2019 12:00 AM Ordering Location: [facility] DermPath Lab Received: 07/24/2019 12:32 PM Pathologist: Uriel Vera MD Specimen: Skin, left mid post helix rim 5:38 PM CDT DERMATOPATHOLOGY LABORATORY Final Diagnosis Specimen A. 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 Check margins. 5:38 PM CDT DERMATOPATHOLOGY LABORATORY Gross Description Specimen A: Received is one formalin filled container labeled with the patients name and designated left mid post helix rim. The specimen consists of a shave removal measuring [id number]. The margin is inked green. Jar 0. 5:38 PM CDT DERMATOPATHOLOGY LABORATORY Microscopic Description Specimen A. SKIN, left mid post helix rim: The epidermis shows parakeratosis, full thickness disorderly maturation of keratinocytes, mitoses at different levels, and dyskeratotic cells. This lesion is not present at the sampled margin of the specimen. 5:38 PM CDT DERMATOPATHOLOGY LABORATORY Disclaimer An external and internal positive and negative controls are appropriate for the histochemical, immunohistochemical and immunofluorescence stain(s) in this case (if any), except where stated explicitly. The performance characteristics of the stain(s) cited in this report were developed and its performance characteristic determined by the Dermatopathology Laboratory at [facility], directed by Dr. Madiha Vera. These tests need not be, and therefore are not, approved by the [place] Food and Drug Administration. The tests are used for clinical purposes. Billing Codes Specimen Charges Stain Charges 28762 1 5:38 PM CDT DERMATOPATHOLOGY LABORATORY Embedded Images 5:38 PM CDT DERMATOPATHOLOGY LABORATORY Pathology/Cytolog y TISSUE SPECIMEN FROM SKIN / Unknown 07/23/2019 07/24/2019 12:32 PM CDT Matthias Ruiz MD LAB - PATHOLOGY/CYTOLOGY ORD ERABLES Final Result DERMATOPATHOLOGY LABORATORY [facility] - Department of Dermatology [address] [facility], 5th Floor Lab [address] [phone] documented in this encounter Visit Diagnoses Not on filedocumented in this encounter Care Teams Neurocritical Care Physician Relationship Specialty Start Date End Date Sundeep Rivera DO [address] [facility] [address] [place] [address] PCP - General 04/12/18 documented as of this encounter
[2025-09-25 08:52] VITALS: BP 170/90; PULSE 76; RESP 20; TEMP 36.2; O2SAT 97; BMI 29.7
[2025-09-25] MEDS: LACTATED RINGERS 1,000 ML 150 ML IV CONT (08:55)
--- NOTE | 2025-09-25 09:45 | PM.IMHP2 ---
H&P: HPI History of Present Illness Date/Time: 09/25/25 09:45 Chief Complaint: History of colon polyps Narrative: The patient has a history of colonic polyps, the last colonoscopy was in 2019. Review of Systems Review of Systems: All systems reviewed & are unremarkable except as noted in HPI and below PMFSH Past Medical History Medical History Sialadenitis Hx of skin cancer, basal cell History of colon polyps Gastro-esophageal reflux disease without esophagitis Essential (primary) hypertension Encounter for screening for malignant neoplasm of prostate Elevated alkaline phosphatase level Dietary counseling and surveillance (01/26/16) Adult general medical exam Hernia Glaucoma Adenomatous colon polyp CAD (coronary artery disease) Hypertension Pure hypercholesterolemia Surgical History Surgical History History of cataract surgery H/O knee surgery History of coronary angioplasty with insertion of stent H/O cardiac catheterization History of cholecystectomy S/P CABG x 4 Family History Family History Mother No problems noted. Father No problems noted. 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 Gender identity (if verbalized by the patient): Male Meds Home Medications and Allergies Home Medications ?Medication ?Instructions ?Recorded ?Confirmed ?Type ascorbic acid (vitamin C) 1,000 mg 4 g PO DAILY 12/25/19 09/25/25 History tablet (Vitamin C) aspirin 81 mg tablet,delayed 81 mg PO DAILY 12/25/19 09/25/25 History release (Adult Low Dose Aspirin) coQ10 (ubiquinol) 100 mg capsule 100 mg PO BID 12/25/19 09/25/25 History calcium polycarbophil 625 mg 1,250 mg PO DAILY 02/28/23 09/25/25 History tablet (FiberCon) timolol maleate 0.5 % eye drops 1 drp EACH EYE DAILY 02/28/23 09/25/25 History lactobacillus combination no.4 3 3,000 mmu cells PO DAILY 12/12/23 09/25/25 History billion cell capsule (Probiotic) hydrocortisone 2.5 % topical cream 1 applic RECTAL DAILY PRN 07/04/24 09/12/25 Rx with perineal applicator hemorrhoids #30 grams (Proctozone-HC) metoprolol tartrate 50 mg tablet 50 mg PO DAILY 09/05/25 09/25/25 History (Lopressor) Allergies Allergy/AdvReac Type Severity Reaction Status Date / Time No Known Allergies Allergy Verified 09/25/25 08:50 Vital Signs Vital Signs - 24 hr 09/25/25 08:52 Temperature 97.1 F L Pulse Rate 76 Respiratory Rate 20 Blood Pressure 170/90 H Pulse Oximetry 97 Oxygen Delivery Room Air Exam Const: General: cooperative and healthy appearing Resp: Effort & Inspection: normal respiratory effort and able to speak in complete sentences Auscultation: clear to auscultation bilaterally Cardio: Rate: regular rate Rhythm: regular rhythm GI: Inspection: normal to inspection GI Palp: No No hepatosplenomegaly present Auscultation: normal bowel sounds Rectal Exam: deferred Skin: General skin exam: normal color Psych: Appearance: grossly normal Mental Status: mental status grossly normal Assessment and Plan Assessment and plan (1) History of colonic polyps: Code(s): Z86.0100 - Personal history of colon polyps, unspecified Status: Acute Assessment and Plan: The patient is deemed a good candidate for the procedure. Consent signed. Will proceed. Prior Studies I have reviewed the following patient records and this information was taken into consideration when formulating the assessment and plan.: previous labs, previous ER visits, previous hospitalizations and previous clinic visits
--- NOTE | 2025-09-25 11:09 | WPDANESEPPF ---
Anes - Initial Pre Proc Eval Procedure: Operation Date: 09/25/25 10:00 Proposed Procedures p Screening Colonoscopy - Shahab Salazar MD Date/Time: 09/25/25 11:09 Surgeon: Shahab Salazar MD Pre Op Diagnosis: Encounter for screening for malignant neoplasm of Patient Data Age: 84 Gender: M Height: 1.8 m Weight: 96.5 kg Last Vital Signs Temp 36.2 C L 09/25/25 08:52 Pulse 76 09/25/25 08:52 Resp 20 09/25/25 08:52 BP 170/90 H 09/25/25 08:52 Pulse Ox 97 09/25/25 08:52 O2 Del Method Room Air 09/25/25 08:52 Allergies Allergy/AdvReac Type Severity Reaction Status Date / Time No Known Allergies Allergy Verified 09/25/25 08:50 Home Medications ?Medication ?Instructions ?Recorded ?Confirmed ?Type ascorbic acid (vitamin C) 1,000 mg 4 g PO DAILY 12/25/19 09/25/25 History tablet (Vitamin C) aspirin 81 mg tablet,delayed 81 mg PO DAILY 12/25/19 09/25/25 History release (Adult Low Dose Aspirin) coQ10 (ubiquinol) 100 mg capsule 100 mg PO BID 12/25/19 09/25/25 History calcium polycarbophil 625 mg 1,250 mg PO DAILY 02/28/23 09/25/25 History tablet (FiberCon) timolol maleate 0.5 % eye drops 1 drp EACH EYE DAILY 02/28/23 09/25/25 History lactobacillus combination no.4 3 3,000 mmu cells PO DAILY 12/12/23 09/25/25 History billion cell capsule (Probiotic) hydrocortisone 2.5 % topical cream 1 applic RECTAL DAILY PRN 07/04/24 09/12/25 Rx with perineal applicator hemorrhoids #30 grams (Proctozone-HC) metoprolol tartrate 50 mg tablet 50 mg PO DAILY 09/05/25 09/25/25 History (Lopressor) Patient hx anesthesia problems: none Family hx anesthesia problems: none Results Review: All pre-operative results and documents have been reviewed as part of the pre-operative evaluation. [facility] Past Medical History Medical History Sialadenitis Hx of skin cancer, basal cell History of colon polyps Gastro-esophageal reflux disease without esophagitis Essential (primary) hypertension Encounter for screening for malignant neoplasm of prostate Elevated alkaline phosphatase level Dietary counseling and surveillance (01/26/16) Adult general medical exam Hernia Glaucoma Adenomatous colon polyp CAD (coronary artery disease) Hypertension Pure hypercholesterolemia Surgical History Surgical History History of cataract surgery H/O knee surgery History of coronary angioplasty with insertion of stent H/O cardiac catheterization History of cholecystectomy S/P CABG x 4 Family History Family History Mother No problems noted. Father No problems noted. 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 Informed Consent: The patient's anesthetic plan and its attendant risks and benefits were discussed with the patient/family/POA. Questions were solicited and answers provided to the satisfaction of the patient/family/POA.
--- NOTE | 2025-09-25 11:33 | S_PTH ---
PATIENT: Alonso Arenas LOC: [facility] Max#:[id number] AGE/SX: 84/M ROOM: RE09/25/[address]: Shahab Salazar MD : 1940 BED: DIS: 09/25/2025 SPEC #: [id number] RECD: 09/25/25 12:51 STATUS: JUSTIN RERosamaria #: [id number] BRONWYN: 09/25/25 11:[address]: Shahab Salazar DEPT: [facility] Surgical RECD BY: Bethany Lomax ENTERED: 09/25/25 12:53 SP TYPE: Surgical OTHR DR: Redd Chan, Tissues: A - Colon Polypectomy B - Colon Polypectomy Procedures: Hematoxylin and Eosin Stain Gross and Microscopic Level 4
[2025-09-25 11:37] VITALS: BP 103/61; PULSE 63; RESP 14; O2SAT 98
[2025-09-25 11:47] VITALS: BP 111/66; PULSE 61; RESP 15; O2SAT 98
[2025-09-25 11:57] VITALS: BP 133/82; PULSE 65; RESP 21; O2SAT 99
== END 2025-09-25 11:59 | disposition home or self-care (01) ==
PROVIDERS: PCP Internal Medicine; Visit Provider Internal Medicine Gastroenterology
PROC: 0DJD8ZZ Inspection of Lower Intestinal Tract, Via Natural or Artificial Opening Endoscopic (ICD-10-PCS; CPT 45378; principal; 2025-09-25 10:00)
DX: Z12.11 Encounter for screening for malignant neoplasm of colon (principal); D12.2 Benign neoplasm of ascending colon; D12.3 Benign neoplasm of transverse colon; K57.30 Diverticulosis of large intestine without perforation or abscess without bleeding; K64.8 Other hemorrhoids
CPT/HCPCS: 45385; 88305; J2704; J7120